=== PATIENT | male | born 1990 | race Caucasian/White ===

== ENCOUNTER 2022-02-23 14:13 | Outpatient (CLI) | payer BC, SELFPAY ==
[2022-02-23 18:57] LABS: Basophils Absolute Auto 0.1 K/mm3 (0.0-0.1); Basophils Percent Auto 0.9 % (0.2-1.2); Eosinophils Absolute Auto 0.3 K/mm3 (0-0.3); Eosinophils Percent Auto 3.4 % (0-4.4); Hematocrit 57.7 % (42.0-52.0); Hemoglobin 20.3 g/dL (14.0-18.0); Immature Granulocyte Absolute 0.02 K/mm3 (0.00-0.031); Immature Granulocyte Percent A 0.2 % (0-0.5); Lymphocytes Absolute Auto 2.31 K/mm3 (0.9-3.2); Lymphocytes Percent Auto 26.4 % (18.3-44.2); Mean Corpuscular HGB Conc 35.2 g/dl (32-36); Mean Corpuscular Hemoglobin 32.4 pg (26-34); Mean Corpuscular Volume 92.2 fl (80-100); Mean Platelet Volume 10.8 fl (7.4-10.4); Monocytes Absolute Auto 0.9 K/mm3 (0.1-0.6); Monocytes Percent Auto 10.6 % (2.6-8.5); Neutrophils Absolute Auto 5.1 K/mm3 (1.3-6.7); Neutrophils Percent Auto 58.5 % (45.5-73.1); Platelet Count Result 222 k/mm3 (150-375); Red Blood Count 6.26 M/mm3 (4.6-6.20); Red Cell Distribution Width 12.6 % (11.5-14.5); White Blood Count 8.8 K/mm3 (4.5-10.0)
[2022-02-23 19:43] LABS: Iron 103 ug/dL (49-181)
[2022-02-23 19:52] LABS: Percent Iron Saturation 24 % (20-50)
== END 2022-02-23 14:14 | disposition home or self-care (01) ==
LOC: ANHGOSHLAB 14:15
PROVIDERS: PCP Internal Medicine; Visit Provider Nurse Practitioner
DX: D75.1 Secondary polycythemia (principal)
CPT/HCPCS: 36415; 82728; 83540; 83550; 85025

== ENCOUNTER 2022-05-23 08:33 | Outpatient (CLI) | payer BC, SELFPAY ==
--- NOTE | 2022-06-10 12:55 | WPDHOMESLEEP ---
Sleep Study - Home Unattended Date of Study: 05/23/22 Ordering Provider: Azael Suárez DO Interpreting Provider: Gege Valdez DO Home Sleep Study Type: Watch PAT Height: 1.93 m Weight: 113.398 kg Body Mass Index: 30.4 Neck Circumference (inches): 16.5 [place]: 8 Reason for Sleep Study Loud snoring Sleep History The patient is a 23-year-old male with hypertension, hypogonadism, secondary polycythemia and tobacco use that had a sleep study ordered for evaluation of sleep apnea. The patient denies awakening from sleep short of breath. He denies awakening at night with heartburn, belching or cough. He frequently snores loud enough that others complain. He denies having trouble sleeping when he has a cold. He denies waking up gasping for air throughout the night. He occasionally has breathing problems at night observed by himself or others. He frequently sweats excessively at night. He occasionally has heart palpitations or irregular heartbeats during the night. He rarely falls asleep during the day but never while driving. He denies sleep paralysis, cataplexy and hypnagogic / hypnopompic hallucinations. He occasionally has trouble at school or work due to sleepiness. He denies feeling afraid of going to sleep. He occasionally has nightmares and frequently remembers his dreams. He frequently has thoughts racing through his mind. He rarely feels sad, depressed or anxious. He denies having muscular tension. He occasionally notices parts of his body jerk. He occasionally kicks during the night. He denies having crawling and aching feelings in his legs and rarely has leg pain during the night. He denies grinding his teeth during sleep and denies awakening with morning jaw pain. He denies being bothered by pain during the day and denies being awakened by pain during the night. He rarely wakes up feeling stiff in the morning. He rarely wakes up with sore or achy muscles. He rarely wakes up with pain in the neck, spine and other joints. He goes to bed between 1-2 a.m. on weekdays and between 2-4 a.m. on the weekends. It takes him 30 minutes to an hour to fall asleep. He typically does not wake up throughout the night. If he does, he will check the time and go back to sleep within 10 minutes. He wakes up at 8:30 a.m. on weekdays and between 10 30-11 a.m. on the weekends. He typically gets 5-7 hours of sleep on weekdays and 9-10 hours of sleep on the weekends. He will stay in bed for 30 minutes after waking up in the morning. He currently lives with a sister and [id number]. He does not consume any caffeinated beverages within 2 hours of bedtime. He does engage in physical exercise before bedtime. He will watch television before falling asleep. He will take naps in the afternoon or the evening but they are not refreshing. He has 1 energy drink per day. He will have 6-12 beers per day. He currently smokes half a pack of cigarettes per day. He does use recreational drugs. [facility] Past Medical History Medical History H/O gynecomastia Surgery 2019 Hypertension Surgical History Surgical History History of surgery on arm Left 2001 Family History Family History Grandparent Alcoholism Heart disease Cerebrovascular accident Father FH: hemochromatosis Family history of heart disease Social History Social History Smoking packs per day: 0.5 Smoking cigarettes per day: 10.0 Smoking status: Current every day smoker Tobacco type: cigarettes Alcohol intake: current Drinks per week: 36 Substance use: current Substance use type: marijuana Medications Home Medications Medication Instructions Recorded Confirmed Type chorionic gonadotropin, human See Rx Ins
[2022-06-10 13:01] VITALS: BMI 30.4
--- NOTE | 2022-08-10 09:46 | SLEEP ---
new calls [id number]
== END 2022-05-24 10:51 | disposition home or self-care (01) ==
LOC: ANHCSM 08:35
PROVIDERS: PCP Internal Medicine; Visit Provider Internal Medicine
DX: G47.30 Sleep apnea, unspecified (principal); R06.83 Snoring
CPT/HCPCS: 95800